=== PATIENT | female | born 1965 | race Caucasian/White ===

== ENCOUNTER 2021-10-17 22:40 | Emergency (ER) | payer OTHER ==
[~2021-10-17] VITALS: Ht 165.1 cm; Wt 77.3 kg
[2021-10-17 22:45] VITALS: TEMP 98.4
[2021-10-18] MEDS ORDERED: NORCO 325 MG-51 TAB PO (00:28)
[2021-10-18 00:53] VITALS: BP 168/88; PULSE 89
== END 2021-10-18 01:06 | disposition home or self-care (01) ==
LOC: COL.ER 22:40
DX: S53.105A Unspecified dislocation of left ulnohumeral joint, initial encounter (principal); W01.0XXA Fall on same level from slipping, tripping and stumbling without subsequent striking against object, initial encounter; Y92.007 Garden or yard of unspecified non-institutional (private) residence as the place of occurrence of the external cause
CPT/HCPCS: J2704; J7040